=== PATIENT | male | born 2000 | race Caucasian/White ===

== ENCOUNTER 2019-07-21 14:19 | Emergency (ER) | payer OTHER, SELFPAY ==
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
[2019-07-21 14:23] VITALS: BMI 26.6
[2019-07-21 14:28] VITALS: BP 127/72; PULSE 101; RESP 16; TEMP 36.9; O2SAT 97
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
[2019-07-21 15:40] VITALS: BP 115/76; PULSE 76; RESP 18; O2SAT 98
== END 2019-07-21 15:41 | disposition home or self-care (01) ==
LOC: ER 15:49
PROVIDERS: Emergency Provider Physician Assistant
DX: S13.9XXA Sprain of joints and ligaments of unspecified parts of neck, initial encounter (principal); V89.2XXA Person injured in unspecified motor-vehicle accident, traffic, initial encounter
CPT/HCPCS: 12345; 72125; 99281; 99282